=== PATIENT | female | born 1950 | race Caucasian/White ===

== ENCOUNTER 2017-06-06 19:28 | Emergency (ER) | payer OTHER ==
--- NOTE | 2017-06-06 20:21 | ER Document Report ---
ED Fall - General Chief Complaint: Fall, groin pain Stated Complaint: FALL,GROIN PAIN Time Seen by Provider: 06/06/17 20:14 Notes: Patient is a 66-year-old female presents emergency department complaining of left hip pain. Patient states that she fell yesterday when she is playing with her grandkids landing on her right side. She states that today she is having left anterior hip pain that hurts with movement, ambulation. She states she is not able to bear weight. She states that she did not take anything for pain prior to arrival. She states that she does have osteoporosis with previous fractures of her right breast right knee and left ankle. Primary care is in [facility] [place] OF THE [place] IN LAST 30 DAYS: No - Related data Allergies/Adverse Reactions: No Known Allergies Allergy (Unverified 06/06/17 20:26) Past Medical History - Social History Smoking Status: Never Smoker Family History: Reviewed & Not Pertinent Patient has suicidal ideation: No Patient has homicidal ideation: No Renal/ Medical History: Denies: Hx Peritoneal Dialysis Review of Systems - Review of Systems Constitutional: No symptoms reported Musculoskeletal: See HPI -: Yes All other systems reviewed and negative Physical Exam - Vital signs Vitals: Temp Pulse Resp BP Pulse Ox 98.2 F 75 16 126/70 H 99 06/06/17 19:52 06/06/17 19:52 06/06/17 19:52 06/06/17 19:52 06/06/17 19:52 - General General appearance: Appears well, Alert In distress: None - Cardiovascular Pulses: Normal: Femoral Normal capillary refill: Yes - Extremities Hip: Tender - Anterior, Pain with ROM, Unable to bear weight. No: Abrasion, Deformity, Dislocation, Ecchymosis, Instability, Laceration - Skin Skin Temperature: Warm Skin Moisture: Dry Skin Color: Normal Skin Turgor: Elastic Course - Re-evaluation Re-evalutation: 06/06/17 21:25 Patient is a 66-year-old female is hemodynamically stable, no acute distress and afebrile. Initial x-ray shows osteoporosis without evidence of hip fracture. But due to patient's history and significant pain with weightbearing will order a CT of the pelvis to rule out for any underlying femoral head fracture. 06/06/17 22:36 No evidence of fracture noted on CT of the pelvis. Patient will be discharged home on crutches with instruction to follow-up with her primary care provider in the next 7-10 days if her symptoms persist. Patient agrees with plan and stable for discharge home. Patient was witnessed to be able to bear weight without assistance of the crutches prior to discharge. - Vital Signs Vital signs: Temp Pulse Resp BP Pulse Ox 97.9 F 70 18 124/78 98 06/06/17 23:08 06/06/17 23:08 06/06/17 23:08 06/06/17 23:08 06/06/17 23:08 Discharge - Discharge Clinical Impression: Hip injury Qualifiers: Encounter type: initial encounter Laterality: left Qualified Code(s): S79.912A - Unspecified injury of left hip, initial encounter Condition: Good Disposition: HOME, SELF-CARE Instructions: Use of Crutches ([facility]), Use of P[employer] Ibuprofen ([facility]), Muscle Strain ([facility]) Additional Instructions: Please follow-up with your primary care doctor in 7-10 days Prescriptions: Ibuprofen [Motrin 800 mg Tablet] 800 mg PO Q8H PRN #30 tab PRN Reason: Oxycodone HCl/Acetaminophen [Percocet 5-325 mg Tablet] 1 - 2 tab PO Q4H PRN #10 tablet PRN Reason:
[2017-06-06] MEDS ORDERED: OXYCODONE-ACETAMINOPHEN 5-325 MG TABLET PO ONE (20:33)
--- NOTE | 2017-06-06 21:10 | RADIOLOGY REPORT (SQ) ---
EXAM DESCRIPTION: HIP LEFT AP/LATERAL COMPLETED DATE/TIME: 06/06/2017 8:56 pm REASON FOR STUDY: fall COMPARISON: None. NUMBER OF VIEWS: Two views hip and pelvis. LIMITATIONS: None. FINDINGS: Osteopenic without fracture. Maintained hips. No bone lesion. OTHER: No other significant finding. IMPRESSION: NORMAL STUDY. TECHNICAL DOCUMENTATION: JOB ID: [id number]
--- NOTE | 2017-06-06 22:13 | RADIOLOGY REPORT (SQ) ---
EXAM DESCRIPTION: CT PELVIS WITHOUT COMPLETED DATE/TIME: 06/06/2017 10:01 pm REASON FOR STUDY: fall, h/o OP, left hip pain, diff weight bearing COMPARISON: None. TECHNIQUE: CT scan of the pelvis performed without intravenous or oral contrast. Images reviewed wi th soft tissue and bone windows. Reconstructed coronal and sagittal MPR images reviewed. All images stored on PACS. All CT scanners at this facility use dose modulation, iterative reconstruction, and/or weight based d osing when appropriate to reduce radiation dose to as low as reasonably achievable (ALARA). [facility]: Dose Right [facility]: CareDose [facility]: Dose Right [facility]: Teradose 4D [facility]: Smart [employer] RADIATION DOSE: Up-to-date CT equipment and radiation dose reduction techniques were employed. CTDIv ol: 10.8 mGy. DLP: 374 mGy-cm. mGy. LIMITATIONS: None. FINDINGS: PELVIC BONES: No acute fracture. No worrisome bone lesions. VISUALIZED SPINE: No acute findings. HIP(S): No acute fracture or dislocation. No worrisome bone lesions. PELVIC SOFT TISSUES: No significant findings. EXTRAPELVIC SOFT TISSUES: No significant findings. OTHER: No other significant finding. IMPRESSION: NO ACUTE OR SIGNIFICANT FINDINGS. TECHNICAL DOCUMENTATION: JOB ID: [id number] Quality ID # [id number]: Final reports with documentation of one or more dose reduction techniques (e.g., Au tomated exposure control, adjustment of the mA and/or kV according to patient size, use of iterative reconstruction technique) 2010 [employer]- All Rights Reserved
[2017-06-06 23:14] VITALS: BP 124/78
== END 2017-06-06 23:08 | disposition home or self-care (01) ==
LOC: ER 19:28
DX: S79.912A Unspecified injury of left hip, initial encounter (principal); M25.552 Pain in left hip; W01.0XXA Fall on same level from slipping, tripping and stumbling without subsequent striking against object, initial encounter; M81.0 Age-related osteoporosis without current pathological fracture
CPT/HCPCS: 72192; 99284